=== PATIENT | male | born 1980 | race African-American/Black ===

== ENCOUNTER 2022-04-09 06:53 | Emergency (ER) | payer OTHER, MEDICAID ==
[~2022-04-09] VITALS: Ht 182.9 cm; Wt 100.0 kg
[2022-04-09 07:42] LABS: EOSINOPHILS % 0.1 % (0.0-5.0); HEMATOCRIT. 37.3 % (42.0-52.0); HEMOGLOBIN. 12.7 g/dL (14.0-18.0); LYMPHOCYTES % 21.5 % (20.0-50.0); MEAN CORPUSCULAR HEMOGLOBIN 29.4 pg (28.0-32.0); MEAN CORPUSCULAR VOLUME 86.6 fL (80.0-94.0); MEAN PLATELET VOLUME 8.3 fl (7.4-10.4); MONOCYTES % 1.6 % (2.0-8.0); NEUTROPHILS % 75.8 % (40.0-76.0); PLATELET 321 x1000/uL (130-400); RED BLOOD CELL COUNT 4.31 mill/uL (4.7-6.1); RED CELL DISTRIBUTION WIDTH 15.7 % (11.6-14.6)
[2022-04-09 07:50] LABS: CHLORIDE 96 mEq/L (98-107)
[2022-04-09 07:51] LABS: *AMPHETAMINES SCREEN URINE NEGATIVE (NEGATIVE); *BARBITURATES SCREEN URINE NEGATIVE (NEGATIVE); *BENZODIAZEPINES SCREEN URINE NEGATIVE (NEGATIVE); *COCAINE SCREEN URINE NEGATIVE (NEGATIVE); CANNABINOID URINE SCREEN NEGATIVE (NEGATIVE); METHADONE URINE SCREEN NEGATIVE (NEGATIVE); OPIATES URINE SCREEN NEGATIVE (NEGATIVE); PHENCYCLIDINE URINE SCREEN NEGATIVE (NEGATIVE)
[2022-04-09 07:58] LABS: ETHANOL BLOOD < 10 mg/dL
[2022-04-09] MEDS: KETOROLAC 60MG/2ML VIAL IM ONE (08:25)
[2022-04-09] MEDS: MORPHINE SULFATE 4 MG/ML CPJ (NOT FOR IM USE) IV STA (09:34)
[2022-04-09] MEDS: ONDANSETRON HCL 4MG/2ML INJ IV STA (09:34)
[2022-04-09 12:23] VITALS: BP 154/101
== END 2022-04-09 12:39 | disposition short-term general hospital (02) ==
LOC: ER 07:02 → CANBEDREQ 10:27 → ER 12:39
DX: K85.90 Acute pancreatitis without necrosis or infection, unspecified (principal); I10 Essential (primary) hypertension; E11.9 Type 2 diabetes mellitus without complications
CPT/HCPCS: 36415; 74176; 80053; 80305; 80320; 83690; 85025; 96372; 96374; 96375; 99285; J1885; J2270; J2405; G0480